=== PATIENT | male | born 1935 | race Caucasian/White ===

== ENCOUNTER 2017-08-05 11:43 | Inpatient (IN) | payer MEDICARE, OTHER ==
[~2017-08-05] VITALS: Ht 177.8 cm; Wt 79.2 kg
--- NOTE | ~2017-08-05 | HP ---
History And Physical [place] [address] [facility] [place]. [address] NAME: REA PAYTON JR : 35 STATUS : ADM Lisa PAT#: [id number] AGE: 82 ADM/REG DATE : 08/05/17 MR#: [id number] REPORT SERV DATE: 08/05/17 DICTATED BY: MIGUEL HEDRICK DATE: 08/05/17 REPORT STATUS : Draft TRANSCRIBED BY: MODTomas DATE: 08/05/17 DATE OF ADMISSION: 08/05/2017 HISTORY OF PRESENT ILLNESS: This 82-year-old white male, nonsmoker, and albright developed some dyspnea on exertion while changing a tractor tire yesterday, and then today after religious had chest pressure and shortness of breath getting the morning newspaper after religious. His took his blood pressure in the blood pressure monitor, said that his heart rate was in the 150 range and he subsequently came to the emergency room. Troponin level is mildly elevated at 0.75. BUN is 20 and creatinine 1.44 mg%. EKG shows regular sinus rhythm and left axis deviation. There are no acute ST-T wave changes. This gentleman has a brother who has a heart disease. PREVIOUS OPERATIONS: Include cholecystectomy, tonsillectomy, TURP, and right shoulder surgery. ALLERGIES: THERE ARE NO KNOWN ALLERGIES TO MEDICATIONS. SOCIAL HISTORY: This gentleman is . He is nonsmoker and does not use alcohol. At the present time, he has no chest pain or shortness of breath. He denies PND, orthopnea, syncope, near syncope, TIA, or stroke symptoms. Dr. Javy Santana is his regular physician. He has never seen a vocational placement specialist in the past. Chest x-ray was read as negative in the emergency room. PHYSICAL EXAMINATION: VITAL SIGNS: With an otherwise negative review of systems showed a blood pressure of 125/80. HEENT: Head is normocephalic. Eyes, PERRLA. Nose had no epistaxis. SKIN: Clear of ulcerations. NECK: Supple. CHEST: Clear. HEART: Had regular rhythm. Normal S1 and S2. No murmurs, gallops, or pericardial friction rubs. PMI not displaced. ABDOMEN: Benign and nontender. No hepatosplenomegaly or abnormal masses. EXTREMITIES: Had no clubbing, edema, or cyanosis. Pulses in the extremities were intact. NEUROLOGIC: Intact. He is oriented to time, place, and person. CLINICAL IMPRESSION: Acute coronary syndrome. RECOMMENDATIONS: 1. He has no history of hypertension or type 2 diabetes mellitus. 2. Aspirin, heparin, beta-vick, and statin have been ordered. 3. I have fully discussed the risks, benefits, and options of cardiac catheterization and possible PCI with him; he wishes to proceed in the morning. Further recommendations will follow results of this study. History And Physical [address] [address] NAME: REA PAYTON JR : 35 STATUS : ADM Lisa PAT#: [id number] AGE: 82 ADM/REG DATE : 08/05/17 MR#: [id number] REPORT SERV DATE: 08/05/17 DICTATED BY: MIGUEL HEDRICK DATE: 08/05/17 REPORT STATUS : Draft TRANSCRIBED BY: PEYTON DATE: 08/05/17 RB/PEYTON Miguel Hedrick M.D. / [id number] CC: Miguel Hedrick M.D.
[~2017-08-05 11:43] MED LIST: ADVIL PO; ASAB PO; CEFT5 PO; CENTRATEX PO; VITAMIN B-121000 MC1 SL; VITAMIN D1000 UNI1 PO
[2017-08-05] MEDS ORDERED: VITAMIN D1000 UNI1 PO (12:27)
[2017-08-05] MEDS ORDERED: VITAMIN B-121000 MC1 SL (12:27)
[2017-08-05] MEDS ORDERED: ASAB PO (12:27)
[2017-08-05] MEDS ORDERED: T PO (12:31)
[2017-08-05 12:46] LABS: BASOPHILS 0.5 %; BASOPHILS ABSOLUTE 0.04 10/3/uL (0.0-0.16); EOSINOPHILS 1.8 %; EOSINOPHILS ABSOLUTE 0.15 10/3/uL (0.0-0.53); ER CBC TAT 0 Hrs 03 Mins; HEMATOCRIT 45.1 % (40.0-51.0); HEMOGLOBIN 15.3 g/dL (13.6-17.8); IMMATURE GRANULOCYTES 0.1 %; IMMATURE GRANULOCYTES ABSOLUTE 0.01 10/3/uL (0.0-0.11); LYMPHOCYTES 18.8 %; LYMPHOCYTES ABSOLUTE 1.53 10/3/uL (0.67-4.30); MEAN CORPUS HGB CONC 33.9 g/dL (32.0-36.0); MEAN CORPUSCULAR HEMOGLOB 30.1 pg (26.0-34.0); MEAN CORPUSCULAR VOLUME 88.8 fL (80-100); MEAN PLATELET VOLUME 9.8 fL (9.2-13.0); MONOCYTES 7.5 %; MONOCYTES ABSOLUTE 0.61 10/3/uL (0.21-1.20); NEUTROPHILS 71.3 %; NEUTROPHILS ABSOLUTE 5.79 10/3/uL (2.02-8.40); PLATELET COUNT 186 10/3/uL (150-400); RBC DISTRIBUTION WIDTH 13.8 % (12.0-16.0); RED CELL COUNT 5.08 10/6/uL (4.7-6.1); WHITE BLOOD CELLS 8.1 10/3/uL (4.5-10.5)
[2017-08-05 12:48] LABS: MANUAL DIFF NO %
[2017-08-05 12:58] LABS: PARTIAL THROMBO TIME 33.6 SEC (22.5-37.2)
[2017-08-05 13:03] LABS: ALBUMIN 4.4 G/DL (3.5-5.0); ALKALINE PHOSPHATASE 82 U/L (45-117); BUN (BLOOD UREA NITROGEN) 20 MG/DL (6-23); CALCIUM, SERUM 10.3 MG/DL (8.5-10.4); CHLORIDE, SERUM 108 MMOL/L (96-112); CO2 (CARBON DIOXIDE) 28 MMOL/L (24-34); CREATININE 1.44 MG/DL (0.70-1.30); GFR AFRICAN AMERICAN 52 ML/MIN (>=60); GFR NON AFRICAN AMERICAN 45 ML/MIN (>=60); POTASSIUM, SERUM 4.3 MMOL/L (3.5-5.3); SGOT(AST) 24 U/L (5-40); SGPT(ALT) 22 U/L (5-65); SODIUM, SERUM 140 MMOL/L (135-148); TOTAL BILIRUBIN 0.5 MG/DL (0-1.2); TOTAL PROTEIN 7.3 G/DL (6.0-8.5)
[2017-08-05 13:04] LABS: A/G RATIO 1.5 (0.7-1.9); GLOBULIN 2.9 G/DL (2.5-4.1); GLUCOSE, SERUM 89 MG/DL (60-99)
[2017-08-05 13:05] LABS: TROPONIN I 0.75 NG/ML (<0.05)
[2017-08-05 13:08] LABS: PROTIME (NOT ORD) 13.5 SEC (12.0-14.5)
[2017-08-05 13:35] LABS: SED RATE 2 MM/HR (0-15)
[2017-08-06 06:26] LABS: BASOPHILS 0.6 %; BASOPHILS ABSOLUTE 0.04 10/3/uL (0.0-0.16); EOSINOPHILS 4.3 %; EOSINOPHILS ABSOLUTE 0.27 10/3/uL (0.0-0.53); HEMATOCRIT 41.3 % (40.0-51.0); HEMOGLOBIN 13.8 g/dL (13.6-17.8); IMMATURE GRANULOCYTES 0.3 %; IMMATURE GRANULOCYTES ABSOLUTE 0.02 10/3/uL (0.0-0.11); LYMPHOCYTES 27.7 %; LYMPHOCYTES ABSOLUTE 1.75 10/3/uL (0.67-4.30); MEAN CORPUS HGB CONC 33.4 g/dL (32.0-36.0); MEAN CORPUSCULAR HEMOGLOB 29.5 pg (26.0-34.0); MEAN CORPUSCULAR VOLUME 88.2 fL (80-100); MEAN PLATELET VOLUME 9.8 fL (9.2-13.0); MONOCYTES 10.4 %; MONOCYTES ABSOLUTE 0.66 10/3/uL (0.21-1.20); NEUTROPHILS 56.7 %; NEUTROPHILS ABSOLUTE 3.58 10/3/uL (2.02-8.40); PLATELET COUNT 173 10/3/uL (150-400); RBC DISTRIBUTION WIDTH 13.7 % (12.0-16.0); RED CELL COUNT 4.68 10/6/uL (4.7-6.1); WHITE BLOOD CELLS 6.3 10/3/uL (4.5-10.5)
[2017-08-06 06:27] LABS: MANUAL DIFF NO %
[2017-08-06 06:41] LABS: CHOL/HDL RATIO(NOT ORDER) 2.5 (0-5)
[2017-08-06 09:29] LABS: BUN (BLOOD UREA NITROGEN) 17 MG/DL (6-23); CALCIUM, SERUM 9.7 MG/DL (8.5-10.4); CHLORIDE, SERUM 109 MMOL/L (96-112); CO2 (CARBON DIOXIDE) 27 MMOL/L (24-34); CREATININE 1.21 MG/DL (0.70-1.30); GFR AFRICAN AMERICAN 64 ML/MIN (>=60); GFR NON AFRICAN AMERICAN 55 ML/MIN (>=60); GLUCOSE, SERUM 87 MG/DL (60-99); POTASSIUM, SERUM 3.9 MMOL/L (3.5-5.3); SODIUM, SERUM 141 MMOL/L (135-148)
[2017-08-07 04:37] LABS: BASOPHILS 0.4 %; BASOPHILS ABSOLUTE 0.03 10/3/uL (0.0-0.16); EOSINOPHILS 3.7 %; EOSINOPHILS ABSOLUTE 0.26 10/3/uL (0.0-0.53); HEMATOCRIT 38.5 % (40.0-51.0); IMMATURE GRANULOCYTES 0.1 %; IMMATURE GRANULOCYTES ABSOLUTE 0.01 10/3/uL (0.0-0.11); LYMPHOCYTES 23.9 %; LYMPHOCYTES ABSOLUTE 1.66 10/3/uL (0.67-4.30); MEAN CORPUS HGB CONC 33.8 g/dL (32.0-36.0); MEAN CORPUSCULAR HEMOGLOB 29.8 pg (26.0-34.0); MEAN CORPUSCULAR VOLUME 88.3 fL (80-100); MEAN PLATELET VOLUME 9.6 fL (9.2-13.0); MONOCYTES 8.9 %; MONOCYTES ABSOLUTE 0.62 10/3/uL (0.21-1.20); NEUTROPHILS ABSOLUTE 4.37 10/3/uL (2.02-8.40); PLATELET COUNT 163 10/3/uL (150-400); RBC DISTRIBUTION WIDTH 13.4 % (12.0-16.0); RED CELL COUNT 4.36 10/6/uL (4.7-6.1)
[2017-08-07 04:38] LABS: MANUAL DIFF NO %
[2017-08-07 04:52] LABS: BUN (BLOOD UREA NITROGEN) 16 MG/DL (6-23); CALCIUM, SERUM 9.1 MG/DL (8.5-10.4); CHLORIDE, SERUM 111 MMOL/L (96-112); CO2 (CARBON DIOXIDE) 28 MMOL/L (24-34); CPK 115 U/L (0-200); CREATININE 1.35 MG/DL (0.70-1.30); GFR AFRICAN AMERICAN 56 ML/MIN (>=60); GFR NON AFRICAN AMERICAN 49 ML/MIN (>=60); GLUCOSE, SERUM 87 MG/DL (60-99); POTASSIUM, SERUM 4.3 MMOL/L (3.5-5.3); SODIUM, SERUM 145 MMOL/L (135-148)
[2017-08-07 04:54] LABS: CK-MB 2.8 NG/ML; TROPONIN I 0.57 NG/ML (<0.05)
[2017-08-07] MEDS ORDERED: VISKEN5 PO (11:18)
[2017-08-07] MEDS ORDERED: IMDUR30 PO (11:19)
[2017-08-07] MEDS ORDERED: PLAVIX PO (11:26)
[2017-08-07] MEDS ORDERED: NTG150 SL (11:35)
[2017-08-07] MEDS ORDERED: LIPITOR10 PO (11:37)
== END 2017-08-07 12:36 | disposition home or self-care (01) | DRG 282 ==
LOC: ER 11:43 → CDU1 14:23 → CDU2 14:23
PROVIDERS: Hospitalist; Internal Medicine Cardiovascular Disease
PROC: 4A023N7 Measurement of Cardiac Sampling and Pressure, Left Heart, Percutaneous Approach (ICD-10-PCS; principal; 2017-08-06)
PROC: B2111ZZ Fluoroscopy of Multiple Coronary Arteries using Low Osmolar Contrast (ICD-10-PCS; 2017-08-06)
PROC: B2151ZZ Fluoroscopy of Left Heart using Low Osmolar Contrast (ICD-10-PCS; 2017-08-06)
DX: I21.4 Non-ST elevation (NSTEMI) myocardial infarction (principal); I25.119 Atherosclerotic heart disease of native coronary artery with unspecified angina pectoris; R00.1 Bradycardia, unspecified; Z90.49 Acquired absence of other specified parts of digestive tract; Z98.890 Other specified postprocedural states
CPT/HCPCS: 70450; 71010; 80048; 80053; 80061; 82550; 82553; 84460; 84484; 85025; 85610; 85652; 85730; 93005; 93458; 99152; 99153; 99285; A9270-GY; C1769; C1887; C1894; J2250; J3010; Q9967